=== PATIENT | female | born 1955 | race Caucasian/White ===

== ENCOUNTER 2016-08-16 03:29 | Inpatient (IN) | payer OTHER ==
[~2016-08-16] VITALS: Ht 162.6 cm; Wt 97.2 kg
[~2016-08-16 03:29] MED LIST: CEFD300C2 PO; HYDR-3240 PO; LEVO100T PO; LEVO150T5 PO; LEVO25TA2 PO; LOSA50TA6 PO; MAG355OR14 PO; METR500T PO; ONDA4TAB13 SL; PANT40TA5 PO; TRAM50TA2 PO
[2016-08-16] MEDS ORDERED: SODIUM CHLORIDE FLUSH 10ML SYR IVF ONE (04:00)
[2016-08-16] MEDS ORDERED: SODIUM CHLORIDE 0.9% 1,000ML IVBOLUS ONE (04:00)
[2016-08-16] MEDS ORDERED: ONDANSETRON 2MG/ML, 2ML IVPush ONE (04:00)
[2016-08-16] MEDS ORDERED: ONDANSETRON 2MG/ML, 2ML ONE (04:07)
[2016-08-16] MEDS ORDERED: MORPHINE SULFATE 4 MG/ML, 1ML ONE ×2 (04:07→04:41)
[2016-08-16] MEDS: MORPHINE SULFATE 4 MG/ML, 1ML IVPush PRN ×2 (04:14→05:05)
[2016-08-16 04:18] LABS: HEMOGLOBIN 14.1 g/dL (11.7-16.4)
[2016-08-16 04:30] LABS: ASPARTATE AMINO TRANSFERASE 15 U/L (15-37); BLOOD UREA NITROGEN 8 mg/dL (7-18)
[2016-08-16 04:36] LABS: IS PT STATUS REG ER OR PRE ER? YES
[2016-08-16] MEDS ORDERED: POTASSIUM CHLORIDE 20 MEQ TAB.ER.PRT PO ONE (05:00)
[2016-08-16] MEDS ORDERED: POTASSIUM CHLORIDE 10% 20 MEQ/15 ML UDC ONE (05:20)
[2016-08-16] MEDS ORDERED: PHENAZOPYRIDINE 200 MG TABLET PO SCH (05:30)
[2016-08-16] MEDS ORDERED: POLYETHYLENE GLYCOL 17 GM PACKET PO PRN (05:30)
[2016-08-16] MEDS ORDERED: OXYcodone/APAP 5/325MG TABLET PO PRN (05:30)
[2016-08-16] MEDS ORDERED: CEFTRIAXONE PMX 1GM/50ML 50 ML IV SCH (05:30)
[2016-08-16] MEDS ORDERED: PROMETHAZINE 25 MG/ML, 1ML IM PRN (05:30)
[2016-08-16] MEDS ORDERED: ACETAMINOPHEN 325 MG TABLET PO PRN ×2 (05:30→16:30)
[2016-08-16] MEDS ORDERED: BISACODYL 10 MG SUPP PR PRN (05:30)
[2016-08-16] MEDS ORDERED: DOCUSATE 100 MG CAPSULE PO PRN (05:30)
[2016-08-16] MEDS ORDERED: ZOLPIDEM 5MG TABLET PO PRN (05:30)
[2016-08-16] MEDS ORDERED: ONDANSETRON 2MG/ML, 2ML IVP PRN (05:30)
[2016-08-16] MEDS ORDERED: HYDROmorphone 1 MG/ML, 1ML ONE (05:36)
[2016-08-16] MEDS: HYDROmorphone 2 MG/ML, 1ML IV PRN ×2 (05:40→08:15)
[2016-08-16] MEDS ORDERED: CEFTRIAXONE PMX 1GM/50ML 50 ML ONE (05:42)
[2016-08-16] MEDS ORDERED: OMNIPAQUE 350 MG/ML, 100ML BOTTLE ONE (06:13)
[2016-08-16 06:37] VITALS: BP 193/121
[2016-08-16] MEDS: LABETALOL 5MG/ML, 20ML IV PRN ×2 (06:43→08:15)
[2016-08-16 07:20] VITALS: BP 166/118
[2016-08-16] MEDS ORDERED: HEPARIN 1,000 UNITS/ML, 30ML ONE (08:12)
[2016-08-16] MEDS ORDERED: KETAMINE 10 MG/ML, 20ML ONE (08:13)
[2016-08-16] MEDS ORDERED: FENTANYL PF 250 MCG/5ML ONE (08:14)
[2016-08-16] MEDS ORDERED: MIDAZOLAM 1 MG/ML, 2ML ONE ×2 (08:14→12:57)
[2016-08-16] MEDS ORDERED: LOSARTAN 50MG TABLET PO SCH (09:00)
[2016-08-16] MEDS ORDERED: LEVOTHYROXINE 25 MCG TABLET PO SCH (09:00)
[2016-08-16] MEDS ORDERED: PHENYLEPHRINE 10 MG/ML ONE (09:06)
[2016-08-16] MEDS ORDERED: ROCURONIUM 10 MG/ML ONE (09:06)
[2016-08-16] MEDS ORDERED: SUCCINYLCHOLINE 20 MG/ML, 10ML ONE (09:06)
[2016-08-16] MEDS ORDERED: ALBUMIN HUMAN 5% 500 ML ONE (09:38)
[2016-08-16] MEDS ORDERED: POTASSIUM CHLORIDE 40 MEQ in SODIUM CHLORIDE 0.9% 100 ML IV ONE (11:00)
[2016-08-16] MEDS ORDERED: CALCIUM CHLORIDE 10%, 10ML SYR ONE (12:00)
[2016-08-16] MEDS: NS + 20MEQ KCL 1,000 ML IV SCH ×2 (12:05→15:54)
[2016-08-16] MEDS ORDERED: THROMBIN 20,000 UNIT VIAL TP ONE (12:40)
[2016-08-16] MEDS ORDERED: PROTAMINE SULFATE 10 MG/ML, 5ML ONE (12:40)
[2016-08-16] MEDS ORDERED: ALBUMIN HUMAN 5% 1,000 ML ONE (12:57)
[2016-08-16] MEDS ORDERED: HEPARIN 25,000 UNITS/500ML PMX 500 ML IV PRN ×2 (13:30→22:00)
[2016-08-16] MEDS ORDERED: PROPOFOL 100 ML IV ONE (13:50)
[2016-08-16 14:00] VITALS: BP 136/82
[2016-08-16] MEDS: LEVOTHYROXINE 100 MCG TABLET PO SCH (14:00)
[2016-08-16 14:32] LABS: HEMOGLOBIN 11.1 g/dL (11.7-16.4)
[2016-08-16] MEDS ORDERED: FENTANYL 100 MCG PATCH ONE (14:36)
[2016-08-16] MEDS ORDERED: FENTANYL PF 100 MCG/2ML ONE (14:37)
[2016-08-16] MEDS ORDERED: FENTANYL PF 2,500 MCG in SODIUM CHLORIDE 0.9% 200 ML IV PRN (14:39)
[2016-08-16] MEDS ORDERED: NOREPINEPHRINE 4 MG in SODIUM CHLORIDE 0.9% 246 ML IV PRN (14:39)
[2016-08-16 14:41] LABS: ASPARTATE AMINO TRANSFERASE 15 U/L (15-37); BLOOD UREA NITROGEN 6 mg/dL (7-18)
[2016-08-16] MEDS: PROPOFOL 100 ML IV PRN ×3 (14:45→21:44)
[2016-08-16 14:55] LABS: ABG COLLECTION SITE ARTERIAL LINE
[2016-08-16] MEDS ORDERED: PHARMACY MAY ADJ FOR RENAL FX MC SCH (15:00)
[2016-08-16] MEDS ORDERED: DEXTROSE 50%, 50ML SYRINGE IVPush PRN (15:00)
[2016-08-16] MEDS ORDERED: DEXTROSE 4 GM TAB.CHEW PO PRN (15:00)
[2016-08-16] MEDS ORDERED: GLUCAGON 1 MG IM PRN (15:00)
[2016-08-16] MEDS ORDERED: LIDOCAINE-MPF 1%, 2ML ENDO PRN (15:00)
[2016-08-16] MEDS ORDERED: FENTANYL PF 100 MCG/2ML IVPush ONE (15:00)
[2016-08-16] MEDS: FENTANYL PF 100 MCG/2ML IVPush PRN ×5 (15:02→22:18)
[2016-08-16] MEDS: PIPERACILLIN/TAZO/PMX 3.375GM 50 ML IV SCH ×2 (15:42→20:24)
[2016-08-16] MEDS: FAMOTIDINE 20 MG/2 ML IV SCH (16:05)
[2016-08-16] MEDS ORDERED: ACETAMINOPHEN 650 MG SUPP ONE (16:40)
[2016-08-16] MEDS: METRONIDAZOLE PMX 500MG/100ML 100 ML IV SCH ×2 (16:42→16:53)
[2016-08-16] MEDS: ALBUTEROL/IPRATROPIUM 2.5MG/0.5MG, 3 ML INLINE SCH ×3 (19:00→21:28)
[2016-08-16] MEDS: SODIUM CHLORIDE 0.9% 1,000 ML IV SCH (20:00)
[2016-08-16] MEDS: SODIUM CHLORIDE FLUSH 10ML SYR IVF SCH (20:24)
[2016-08-16 20:27] LABS: HEMOGLOBIN 11.8 g/dL (11.7-16.4)
[2016-08-16 20:39] LABS: BLOOD UREA NITROGEN 9 mg/dL (7-18)
[2016-08-16] MEDS: HEPARIN 5,000 UNITS/ML, 1ML IV PRN (22:03)
[2016-08-16 23:02] LABS: PATH.CAST-FLAG NOT PRESENT; SPERM-FLAG NOT PRESENT; XTAL-FLAG NOT PRESENT; YLC-FLAG NOT PRESENT
[2016-08-16 23:15] LABS: ICTOTEST NEGATIVE
[2016-08-16 23:22] LABS: SRC-FLAG NOT PRESENT
[2016-08-17] MEDS: SODIUM CHLORIDE 0.9% 1,000 ML IV SCH ×4 (01:00→20:19)
[2016-08-17] MEDS: METRONIDAZOLE PMX 500MG/100ML 100 ML IV SCH ×4 (01:10→23:17)
[2016-08-17] MEDS: ALBUTEROL/IPRATROPIUM 2.5MG/0.5MG, 3 ML INLINE SCH ×6 (01:50→21:58)
[2016-08-17 02:00] LABS: HEMOGLOBIN 11.5 g/dL (11.7-16.4)
[2016-08-17 02:13] LABS: BLOOD UREA NITROGEN 10 mg/dL (7-18)
[2016-08-17] MEDS: PIPERACILLIN/TAZO/PMX 3.375GM 50 ML IV SCH ×4 (03:12→21:48)
[2016-08-17] MEDS: FAMOTIDINE 20 MG/2 ML IV SCH ×2 (03:12→15:06)
[2016-08-17 04:37] LABS: ABG COLLECTION SITE LEFT RADIAL; COLLATERAL CIRCULATION TESTING NORMAL
[2016-08-17 04:42] LABS: HEMOGLOBIN 11.7 g/dL (11.7-16.4)
[2016-08-17 04:50] LABS: BLOOD UREA NITROGEN 10 mg/dL (7-18)
[2016-08-17] MEDS: LEVOTHYROXINE 100 MCG TABLET PO SCH (05:13)
[2016-08-17] MEDS: HEPARIN 5,000 UNITS/ML, 1ML IV PRN ×3 (05:14→18:50)
[2016-08-17 05:40] LABS: DIFF TOTAL CELLS COUNTED 100 CELL DIFF
[2016-08-17 05:44] LABS: VERIFY COUNTS? YES
[2016-08-17] MEDS ORDERED: LEVOTHYROXINE 25 MCG TABLET PO SCH (06:00)
[2016-08-17] MEDS ORDERED: MAGNESIUM SULFATE PMX 2GM/50ML 50 ML IV ONE (06:30)
[2016-08-17] MEDS ORDERED: FENTANYL PF 250 MCG/5ML ONE (08:16)
[2016-08-17] MEDS ORDERED: MIDAZOLAM 1 MG/ML, 2ML ONE (08:16)
[2016-08-17] MEDS ORDERED: ROCURONIUM 10 MG/ML ONE (08:26)
[2016-08-17] MEDS ORDERED: PHENYLEPHRINE 10 MG/ML ONE (08:26)
[2016-08-17] MEDS ORDERED: PROPOFOL 10 MG/ML, 50ML ONE (08:26)
[2016-08-17] MEDS ORDERED: LACTATED RINGERS 500 ML IVBOLUS ONE (08:30)
[2016-08-17 08:35] LABS: HEMOGLOBIN 11.6 g/dL (11.7-16.4)
[2016-08-17 09:06] LABS: DIFF TOTAL CELLS COUNTED 100 CELL DIFF
[2016-08-17] MEDS: LEVOTHYROXINE MC SCH ×2 (10:00→18:00)
[2016-08-17] MEDS ORDERED: VANCOMYCIN PER PHARMACY MC PRN (10:00)
[2016-08-17 10:01] LABS: VERIFY COUNTS? YES
[2016-08-17] MEDS: PROPOFOL 100 ML IV PRN ×4 (10:13→23:50)
[2016-08-17 10:18] LABS: ABG COLLECTION SITE ARTERIAL LINE; FIO2 50 %
[2016-08-17] MEDS: SODIUM CHLORIDE FLUSH 10ML SYR IVF SCH ×2 (10:23→23:17)
[2016-08-17 10:31] LABS: ASPARTATE AMINO TRANSFERASE 9 U/L (15-37); BLOOD UREA NITROGEN 9 mg/dL (7-18)
[2016-08-17] MEDS ORDERED: PHARMACOKINETIC MONITORING MC PRN (12:00)
[2016-08-17] MEDS ORDERED: SODIUM CHLORIDE 0.9% 1,000ML IVBOLUS ONE ×4 (12:00→21:00)
[2016-08-17] MEDS ORDERED: PHARMACOKINETIC CONSULTATION MC ONE (12:00)
[2016-08-17] MEDS: VANCOMYCIN 1,900 MG in SODIUM CHLORIDE 0.9% 250 ML IV SCH (12:11)
[2016-08-17] MEDS ORDERED: POTASSIUM CHLORIDE 40 MEQ in SODIUM CHLORIDE 0.9% 100 ML IV ONE (13:00)
[2016-08-17] MEDS ORDERED: POTASSIUM CHLORIDE 30 MEQ in SODIUM CHLORIDE 0.9% 100 ML IV ONE (13:00)
[2016-08-17] MEDS: KSCALE TO 4.0 IV SCH ×2 (13:09→19:00)
[2016-08-17 18:30] LABS: HEMOGLOBIN 9.7 g/dL (11.7-16.4)
[2016-08-17 18:42] LABS: BLOOD UREA NITROGEN 10 mg/dL (7-18)
[2016-08-17 18:51] LABS: DIFF TOTAL CELLS COUNTED 100 CELL DIFF
[2016-08-17 18:53] LABS: VERIFY COUNTS? YES
[2016-08-17] MEDS ORDERED: ALBUMIN HUMAN 5% 500 ML IV ONE (19:30)
[2016-08-17] MEDS ORDERED: POTASSIUM CHLORIDE PMX 100 ML IV ONE (20:30)
[2016-08-17] MEDS: HYDROmorphone 2 MG/ML, 1ML IV PRN (20:49)
[2016-08-17] MEDS ORDERED: POTASSIUM PHOSPHATE 44 MEQ in SODIUM CHLORIDE 0.9% 500 ML IV ONE (23:30)
[2016-08-18] MEDS: KSCALE TO 4.0 IV SCH ×4 (01:00→22:00)
[2016-08-18] MEDS ORDERED: POTASSIUM CHLORIDE PMX 100 ML IV ONE ×5 (01:30→23:30)
[2016-08-18] MEDS: ALBUTEROL/IPRATROPIUM 2.5MG/0.5MG, 3 ML INLINE SCH ×6 (01:34→22:00)
[2016-08-18] MEDS: LEVOTHYROXINE MC SCH (02:00)
[2016-08-18] MEDS: FENTANYL PF 2,500 MCG in SODIUM CHLORIDE 0.9% 200 ML IV PRN ×2 (02:08→18:27)
[2016-08-18] MEDS: PIPERACILLIN/TAZO/PMX 3.375GM 50 ML IV SCH ×4 (02:59→21:31)
[2016-08-18] MEDS: FAMOTIDINE 20 MG/2 ML IV SCH (02:59)
[2016-08-18] MEDS: HYDROmorphone 2 MG/ML, 1ML IV PRN (04:15)
[2016-08-18 04:29] LABS: HEMOGLOBIN 8.5 g/dL (11.7-16.4)
[2016-08-18 04:32] LABS: ABG COLLECTION SITE NOT DOCUMENTED
[2016-08-18 04:49] VITALS: BP 132/82
[2016-08-18 04:52] LABS: ASPARTATE AMINO TRANSFERASE 11 U/L (15-37); BLOOD UREA NITROGEN 13 mg/dL (7-18)
[2016-08-18] MEDS: PROPOFOL 100 ML IV PRN ×3 (05:36→21:51)
[2016-08-18] MEDS: LEVOTHYROXINE 100 MCG INJ IVPush SCH (05:39)
[2016-08-18 05:44] LABS: DIFF TOTAL CELLS COUNTED 100 CELL DIFF
[2016-08-18 05:46] LABS: ANISOCYTOSIS 1+; VERIFY COUNTS? YES
[2016-08-18] MEDS: METRONIDAZOLE PMX 500MG/100ML 100 ML IV SCH (07:30)
[2016-08-18] MEDS ORDERED: HEPARIN 25,000 UNITS/500ML PMX 500 ML ONE (08:14)
[2016-08-18] MEDS: HEPARIN 5,000 UNITS/ML, 1ML IV PRN ×2 (08:28→23:25)
[2016-08-18] MEDS: HEPARIN 25,000 UNITS/500ML PMX 500 ML IV PRN (08:39)
[2016-08-18] MEDS: SODIUM CHLORIDE FLUSH 10ML SYR IVF SCH ×2 (08:42→21:38)
[2016-08-18] MEDS ORDERED: ALBUMIN HUMAN 5% 500 ML IV SCH (09:00)
[2016-08-18 09:21] VITALS: BP 115/56
[2016-08-18] MEDS ORDERED: TPN PER PHARMACY MC PRN (10:00)
[2016-08-18] MEDS ORDERED: MAGNESIUM SULFATE PMX 2GM/50ML 50 ML IV ONE (10:00)
[2016-08-18] MEDS: MICAFUNGIN 100 MG in SODIUM CHLORIDE 0.9% 100 ML IV SCH (10:18)
[2016-08-18] MEDS: ALBUMIN HUMAN 25% 100 ML IV SCH ×3 (11:25→21:31)
[2016-08-18] MEDS: SODIUM CHLORIDE 0.9% 1,000 ML IV SCH ×2 (11:25→23:35)
[2016-08-18] MEDS: VANCOMYCIN 1,900 MG in SODIUM CHLORIDE 0.9% 250 ML IV SCH (11:28)
[2016-08-18] MEDS ORDERED: FUROSEMIDE 20 MG/2 ML IV ONE (14:30)
[2016-08-18] MEDS ORDERED: FENTANYL PF 2,500 MCG in SODIUM CHLORIDE 0.9% 200 ML IV PRN (14:39)
[2016-08-18] MEDS ORDERED: DEXTROSE 70% IV SCH (17:00)
[2016-08-18] MEDS ORDERED: [UNRECOGNIZED DRUG - OTHER] IV SCH (17:00)
[2016-08-18] MEDS ORDERED: FAT EMULSIONS IV SCH (17:00)
[2016-08-18] MEDS ORDERED: DEXTROSE 50%, 50ML SYRINGE IVPush PRN (17:00)
[2016-08-18] MEDS ORDERED: DEXTROSE 10% 500 ML IV PRN (17:00)
[2016-08-18] MEDS ORDERED: AMINO ACID 10% IV SCH (17:00)
[2016-08-18] MEDS: INSULIN REGULAR MEDIUM DOSE QDAY SQ-INSULIN SCH (21:38)
[2016-08-18] MEDS: INSULIN REGULAR MEDIUM DOSE Q6H X 48HRS SQ-INSULIN SCH (21:38)
[2016-08-19] VITALS (7 sets, daily range): BP systolic 124–146; BP diastolic 65–79
[2016-08-19] MEDS: HEPARIN 25,000 UNITS/500ML PMX 500 ML IV PRN ×2 (00:32→22:11)
[2016-08-19] MEDS: PIPERACILLIN/TAZO/PMX 3.375GM 50 ML IV SCH ×4 (02:45→23:01)
[2016-08-19] MEDS: ALBUTEROL/IPRATROPIUM 2.5MG/0.5MG, 3 ML INLINE SCH ×6 (03:00→23:18)
[2016-08-19] MEDS: INSULIN REGULAR MEDIUM DOSE Q6H X 48HRS SQ-INSULIN SCH ×4 (03:24→20:57)
[2016-08-19] MEDS: PROPOFOL 100 ML IV PRN ×3 (03:50→20:28)
[2016-08-19 04:09] LABS: ABG COLLECTION SITE ARTERIAL LINE
[2016-08-19 04:20] LABS: HEMOGLOBIN 7.3 g/dL (11.7-16.4)
[2016-08-19 04:23] LABS: BLOOD UREA NITROGEN 16 mg/dL (7-18)
[2016-08-19 04:31] LABS: ASPARTATE AMINO TRANSFERASE 9 U/L (15-37)
[2016-08-19 04:45] LABS: DIFF TOTAL CELLS COUNTED 100 CELL DIFF
[2016-08-19 04:48] LABS: VERIFY COUNTS? YES
[2016-08-19] MEDS: KSCALE TO 4.0 IV SCH ×4 (04:48→23:01)
[2016-08-19] MEDS ORDERED: POTASSIUM CHLORIDE PMX 100 ML IV ONE ×4 (05:00→23:00)
[2016-08-19] MEDS: LEVOTHYROXINE 100 MCG INJ IVPush SCH (06:29)
[2016-08-19] MEDS: ALBUMIN HUMAN 25% 100 ML IV SCH ×3 (09:59→21:00)
[2016-08-19] MEDS: SODIUM CHLORIDE 0.9% 1,000 ML IV SCH (10:00)
[2016-08-19] MEDS: FENTANYL PF 2,500 MCG in SODIUM CHLORIDE 0.9% 200 ML IV PRN (10:00)
[2016-08-19] MEDS ORDERED: PROPOFOL 10 MG/ML, 20ML ONE (10:28)
[2016-08-19] MEDS: SODIUM CHLORIDE FLUSH 10ML SYR IVF SCH ×2 (11:06→21:00)
[2016-08-19] MEDS: MICAFUNGIN 100 MG in SODIUM CHLORIDE 0.9% 100 ML IV SCH (11:44)
[2016-08-19] MEDS: HEPARIN 5,000 UNITS/ML, 1ML IV PRN (12:17)
[2016-08-19] MEDS ORDERED: PHENYLEPHRINE 10 MG/ML ONE (15:20)
[2016-08-19] MEDS ORDERED: ROCURONIUM 10 MG/ML ONE (15:20)
[2016-08-19] MEDS ORDERED: ONDANSETRON 2MG/ML, 2ML ONE (15:20)
[2016-08-19] MEDS ORDERED: [UNRECOGNIZED DRUG - OTHER] IV SCH (17:00)
[2016-08-19] MEDS ORDERED: AMINO ACID 10% IV SCH (17:00)
[2016-08-19] MEDS ORDERED: DEXTROSE 70% IV SCH (17:00)
[2016-08-19] MEDS ORDERED: FAT EMULSIONS IV SCH (17:00)
[2016-08-19] MEDS ORDERED: MIDAZOLAM 1 MG/ML, 2ML ONE (17:09)
[2016-08-19] MEDS ORDERED: FENTANYL PF 100 MCG/2ML ONE (17:09)
[2016-08-19] MEDS ORDERED: HYDROmorphone 1 MG/ML, 1ML ONE (17:09)
[2016-08-19] MEDS ORDERED: KETAMINE 10 MG/ML, 20ML ONE (17:09)
[2016-08-19] MEDS: INSULIN REGULAR MEDIUM DOSE QDAY SQ-INSULIN SCH (20:58)
[2016-08-20] MEDS: INSULIN REGULAR MEDIUM DOSE Q6H X 48HRS SQ-INSULIN SCH ×3 (03:09→15:58)
[2016-08-20] MEDS: PROPOFOL 100 ML IV PRN (03:09)
[2016-08-20 04:00] VITALS: BP 131/83
[2016-08-20 04:26] LABS: HEMOGLOBIN 9.6 g/dL (11.7-16.4)
[2016-08-20 04:34] LABS: DIFF TOTAL CELLS COUNTED 100 CELL DIFF
[2016-08-20 04:40] LABS: ANISOCYTOSIS 1+; POLYCHROMASIA 1+; VERIFY COUNTS? YES
[2016-08-20 04:41] LABS: BLOOD UREA NITROGEN 18 mg/dL (7-18); OVALOCYTES 1+
[2016-08-20 04:43] LABS: ABG COLLECTION SITE LEFT RADIAL; COLLATERAL CIRCULATION TESTING NORMAL
[2016-08-20] MEDS: HEPARIN 5,000 UNITS/ML, 1ML IV PRN (04:46)
[2016-08-20] MEDS: PIPERACILLIN/TAZO/PMX 3.375GM 50 ML IV SCH ×4 (04:50→23:23)
[2016-08-20] MEDS: KSCALE TO 4.0 IV SCH ×4 (05:05→22:00)
[2016-08-20] MEDS: FENTANYL PF 2,500 MCG in SODIUM CHLORIDE 0.9% 200 ML IV PRN ×2 (05:23→23:30)
[2016-08-20] MEDS: LEVOTHYROXINE 100 MCG INJ IVPush SCH (05:31)
[2016-08-20] MEDS: ALBUTEROL/IPRATROPIUM 2.5MG/0.5MG, 3 ML INLINE SCH ×3 (06:45→15:00)
[2016-08-20] MEDS: ALBUMIN HUMAN 25% 100 ML IV SCH ×3 (08:29→21:04)
[2016-08-20] MEDS: SODIUM CHLORIDE FLUSH 10ML SYR IVF SCH ×2 (09:57→21:04)
[2016-08-20] MEDS: MICAFUNGIN 100 MG in SODIUM CHLORIDE 0.9% 100 ML IV SCH (09:57)
[2016-08-20] MEDS: HEPARIN 25,000 UNITS/500ML PMX 500 ML IV PRN ×2 (11:34→23:31)
[2016-08-20] MEDS: ALBUTEROL SULFATE 2.5 MG/3 ML NPPB SCH ×2 (15:00→20:15)
[2016-08-20] MEDS: SODIUM CHLORIDE 0.9% 1,000 ML IV SCH ×2 (16:01→23:00)
[2016-08-20] MEDS: HYDROmorphone 2 MG/ML, 1ML IV PRN ×3 (16:39→23:22)
[2016-08-20] MEDS ORDERED: [UNRECOGNIZED DRUG - OTHER] IV SCH (17:00)
[2016-08-20] MEDS ORDERED: FAT EMULSIONS IV SCH (17:00)
[2016-08-20] MEDS ORDERED: AMINO ACID 10% IV SCH (17:00)
[2016-08-20] MEDS ORDERED: DEXTROSE 70% IV SCH (17:00)
[2016-08-20] MEDS ORDERED: POTASSIUM CHLORIDE PMX 100 ML IV ONE ×2 (17:00→23:45)
[2016-08-21] VITALS (15 sets, daily range): BP systolic 92–160; BP diastolic 45–92
[2016-08-21] MEDS: FENTANYL PF 100 MCG/2ML IVPush PRN (02:54)
[2016-08-21] MEDS: HYDROmorphone 2 MG/ML, 1ML IV PRN ×6 (03:08→23:50)
[2016-08-21] MEDS: KSCALE TO 4.0 IV SCH ×4 (04:00→22:00)
[2016-08-21 04:33] LABS: ABG COLLECTION SITE LEFT RADIAL; COLLATERAL CIRCULATION TESTING NORMAL
[2016-08-21] MEDS: INSULIN REGULAR MEDIUM DOSE QDAY SQ-INSULIN SCH ×2 (05:12→20:18)
[2016-08-21] MEDS: PIPERACILLIN/TAZO/PMX 3.375GM 50 ML IV SCH ×4 (05:13→22:19)
[2016-08-21] MEDS: LEVOTHYROXINE 100 MCG INJ IVPush SCH (05:18)
[2016-08-21 05:23] LABS: BLOOD UREA NITROGEN 22 mg/dL (7-18)
[2016-08-21 05:29] LABS: HEMOGLOBIN 7.4 g/dL (11.7-16.4)
[2016-08-21 05:59] LABS: DIFF TOTAL CELLS COUNTED 100 CELL DIFF
[2016-08-21 06:00] LABS: VERIFY COUNTS? YES
[2016-08-21 06:01] LABS: ANISOCYTOSIS 1+; POLYCHROMASIA 1+
[2016-08-21 06:03] LABS: LARGE PLATELETS 1+
[2016-08-21] MEDS ORDERED: POTASSIUM CHLORIDE PMX 100 ML IV ONE ×2 (06:30→23:45)
[2016-08-21] MEDS: ALBUTEROL SULFATE 2.5 MG/3 ML NPPB SCH (07:00)
[2016-08-21] MEDS ORDERED: DO NOT GIVE MC PRN (08:30)
[2016-08-21] MEDS ORDERED: SODIUM CHLORIDE 0.9% 1,000 ML IV SCH (09:14)
[2016-08-21] MEDS: ALBUMIN HUMAN 25% 100 ML IV SCH ×3 (09:15→21:19)
[2016-08-21] MEDS: SODIUM CHLORIDE FLUSH 10ML SYR IVF SCH ×2 (09:20→20:13)
[2016-08-21] MEDS: MICAFUNGIN 100 MG in SODIUM CHLORIDE 0.9% 100 ML IV SCH (11:29)
[2016-08-21] MEDS ORDERED: SODIUM CHLORIDE 0.9% IV ONE (13:30)
[2016-08-21] MEDS ORDERED: PROTAMINE SULFATE IV ONE (13:30)
[2016-08-21] MEDS ORDERED: PROTAMINE SULFATE 10 MG/ML, 5ML IVPush ONE (13:30)
[2016-08-21] MEDS: [UNRECOGNIZED DRUG - OTHER] IV SCH ×2 (16:36→17:36)
[2016-08-21] MEDS: AMINO ACID 10% IV SCH ×2 (16:36→17:36)
[2016-08-21] MEDS: DEXTROSE 70% IV SCH ×2 (16:36→17:36)
[2016-08-21] MEDS: FAT EMULSIONS IV SCH ×2 (16:36→17:36)
[2016-08-21 17:04] LABS: HEMOGLOBIN 7.2 g/dL (11.7-16.4)
[2016-08-21] MEDS: FENTANYL PF 2,500 MCG in SODIUM CHLORIDE 0.9% 200 ML IV PRN (17:44)
[2016-08-21] MEDS: FILTER, DISP 1.2 MICRON FOR TPN/PVN IV PRN (17:45)
[2016-08-21] MEDS ORDERED: POTASSIUM CHLORIDE PMX 100 ML IVPB ONE (20:00)
[2016-08-21 23:07] LABS: HEMOGLOBIN 8.6 g/dL (11.7-16.4)
[2016-08-22] MEDS: HYDROmorphone 2 MG/ML, 1ML IV PRN ×5 (03:56→19:27)
[2016-08-22 03:57] VITALS: BP 146/83
[2016-08-22 04:50] LABS: ABG COLLECTION SITE LEFT BRACHIAL
[2016-08-22] MEDS: KSCALE TO 4.0 IV SCH ×4 (05:30→22:00)
[2016-08-22] MEDS: PIPERACILLIN/TAZO/PMX 3.375GM 50 ML IV SCH ×4 (05:57→23:02)
[2016-08-22] MEDS: LEVOTHYROXINE 100 MCG INJ IVPush SCH (06:00)
[2016-08-22 06:20] LABS: HEMOGLOBIN 8.4 g/dL (11.7-16.4)
[2016-08-22 06:36] LABS: BLOOD UREA NITROGEN 37 mg/dL (7-18)
[2016-08-22 06:37] LABS: DIFF TOTAL CELLS COUNTED 100 CELL DIFF
[2016-08-22 06:40] LABS: VERIFY COUNTS? YES
[2016-08-22] MEDS: FENTANYL PF 2,500 MCG in SODIUM CHLORIDE 0.9% 200 ML IV PRN (06:40)
[2016-08-22 06:47] LABS: ANISOCYTOSIS 1+
[2016-08-22 06:48] LABS: POLYCHROMASIA 1+
[2016-08-22] MEDS ORDERED: POTASSIUM CHLORIDE PMX 100 ML IV ONE ×4 (07:00→23:00)
[2016-08-22 07:40] LABS: ABG COLLECTION SITE RIGHT RADIAL; COLLATERAL CIRCULATION TESTING NORMAL
[2016-08-22 08:27] LABS: OCCBLD OBC PASS
[2016-08-22] MEDS: SODIUM CHLORIDE FLUSH 10ML SYR IVF SCH ×2 (09:00→20:27)
[2016-08-22] MEDS ORDERED: INSULIN REGULAR MEDIUM DOSE QDAY SQ-INSULIN SCH (09:00)
[2016-08-22] MEDS: ALBUMIN HUMAN 25% 100 ML IV SCH ×3 (09:30→20:27)
[2016-08-22] MEDS: MICAFUNGIN 100 MG in SODIUM CHLORIDE 0.9% 100 ML IV SCH (10:21)
[2016-08-22 10:40] LABS: HEMOGLOBIN 8.6 g/dL (11.7-16.4)
[2016-08-22] MEDS ORDERED: DEXTROSE 70% IV SCH (17:00)
[2016-08-22] MEDS ORDERED: [UNRECOGNIZED DRUG - OTHER] IV SCH (17:00)
[2016-08-22] MEDS ORDERED: FAT EMULSIONS IV SCH (17:00)
[2016-08-22] MEDS ORDERED: AMINO ACID 10% IV SCH (17:00)
[2016-08-23] MEDS: HYDROmorphone 2 MG/ML, 1ML IV PRN ×2 (00:08→07:46)
[2016-08-23] MEDS: LORazepam 2 MG/ML, 1ML IVPush PRN (00:09)
[2016-08-23] MEDS: FENTANYL PF 2,500 MCG in SODIUM CHLORIDE 0.9% 200 ML IV PRN ×2 (00:22→16:50)
[2016-08-23] MEDS: KSCALE TO 4.0 IV SCH ×4 (04:00→22:00)
[2016-08-23 04:33] LABS: ABG COLLECTION SITE RIGHT RADIAL; COLLATERAL CIRCULATION TESTING NORMAL
[2016-08-23] MEDS: PIPERACILLIN/TAZO/PMX 3.375GM 50 ML IV SCH ×4 (04:41→23:13)
[2016-08-23 04:47] VITALS: BP 145/85
[2016-08-23 05:05] LABS: BLOOD UREA NITROGEN 50 mg/dL (7-18)
[2016-08-23 05:10] LABS: HEMOGLOBIN 7.6 g/dL (11.7-16.4)
[2016-08-23 05:37] LABS: DIFF TOTAL CELLS COUNTED 100 CELL DIFF
[2016-08-23 05:39] LABS: ANISOCYTOSIS 1+; POLYCHROMASIA 1+; VERIFY COUNTS? YES
[2016-08-23 05:41] LABS: OVALOCYTES 1+; SPHEROCYTES 1+
[2016-08-23] MEDS: LEVOTHYROXINE 100 MCG INJ IVPush SCH (05:51)
[2016-08-23] MEDS ORDERED: POTASSIUM CHLORIDE PMX 100 ML IV ONE ×4 (06:00→23:30)
[2016-08-23] MEDS ORDERED: HYDROmorphone 1 MG/ML, 1ML ONE (07:42)
[2016-08-23] MEDS: INSULIN REGULAR MEDIUM DOSE QDAY SQ-INSULIN SCH (07:52)
[2016-08-23 10:30] LABS: HEMOGLOBIN 7.5 g/dL (11.7-16.4)
[2016-08-23] MEDS: ALBUMIN HUMAN 25% 100 ML IV SCH ×3 (11:11→21:20)
[2016-08-23] MEDS: MICAFUNGIN 100 MG in SODIUM CHLORIDE 0.9% 100 ML IV SCH (11:11)
[2016-08-23] MEDS: HYDROmorphone 1 MG/ML, 1ML IV PRN (11:12)
[2016-08-23] MEDS: SODIUM CHLORIDE FLUSH 10ML SYR IVF SCH ×2 (11:16→21:20)
[2016-08-23] MEDS ORDERED: DEXTROSE 70% IV SCH (17:00)
[2016-08-23] MEDS ORDERED: FAT EMULSIONS IV SCH (17:00)
[2016-08-23] MEDS ORDERED: [UNRECOGNIZED DRUG - OTHER] IV SCH (17:00)
[2016-08-23] MEDS ORDERED: AMINO ACID 10% IV SCH (17:00)
[2016-08-23] MEDS: ALBUTEROL SULFATE 2.5 MG/3 ML NPPB PRN (20:22)
[2016-08-23] MEDS ORDERED: FUROSEMIDE 40 MG/4 ML IV ONE (20:30)
[2016-08-24] MEDS: ALBUTEROL SULFATE 2.5 MG/3 ML NPPB PRN ×2 (00:11→02:49)
[2016-08-24] MEDS: LABETALOL 5MG/ML, 20ML IV PRN ×2 (02:01→05:58)
[2016-08-24 02:42] LABS: ABG COLLECTION SITE RIGHT RADIAL; COLLATERAL CIRCULATION TESTING NORMAL
[2016-08-24 02:44] LABS: HEMOGLOBIN 8.5 g/dL (11.7-16.4)
[2016-08-24 02:53] LABS: BLOOD UREA NITROGEN 55 mg/dL (7-18)
[2016-08-24 03:03] LABS: DIFF TOTAL CELLS COUNTED 100 CELL DIFF
[2016-08-24 03:05] LABS: VERIFY COUNTS? YES
[2016-08-24 03:06] LABS: ANISOCYTOSIS 1+; LARGE PLATELETS 1+; OVALOCYTES 1+; SPHEROCYTES 1+
[2016-08-24] MEDS ORDERED: FUROSEMIDE 40 MG/4 ML IV ONE (03:30)
[2016-08-24 04:00] VITALS: BP 163/109
[2016-08-24] MEDS: KSCALE TO 4.0 IV SCH (04:00)
[2016-08-24] MEDS: PIPERACILLIN/TAZO/PMX 3.375GM 50 ML IV SCH ×4 (04:31→23:09)
[2016-08-24 04:45] LABS: ABG COLLECTION SITE RIGHT RADIAL; COLLATERAL CIRCULATION TESTING NORMAL
[2016-08-24] MEDS: LEVOTHYROXINE 100 MCG INJ IVPush SCH (05:53)
[2016-08-24 08:35] LABS: ABG COLLECTION SITE LEFT RADIAL; COLLATERAL CIRCULATION TESTING NORMAL; FIO2 100 %
[2016-08-24] MEDS: ALBUMIN HUMAN 25% 100 ML IV SCH ×3 (08:39→21:46)
[2016-08-24] MEDS: INSULIN REGULAR MEDIUM DOSE QDAY SQ-INSULIN SCH ×4 (08:40→21:00)
[2016-08-24] MEDS: SODIUM CHLORIDE FLUSH 10ML SYR IVF SCH ×2 (08:40→21:16)
[2016-08-24] MEDS: LORazepam 2 MG/ML, 1ML IVPush PRN (09:03)
[2016-08-24] MEDS: PROPOFOL 100 ML IV PRN ×5 (09:58→23:51)
[2016-08-24] MEDS: MICAFUNGIN 100 MG in SODIUM CHLORIDE 0.9% 100 ML IV SCH (10:05)
[2016-08-24] MEDS: ALBUTEROL SULFATE 2.5 MG/3 ML INLINE SCH ×4 (10:30→22:56)
[2016-08-24] MEDS: FENTANYL PF 2,500 MCG in SODIUM CHLORIDE 0.9% 200 ML IV PRN (14:25)
[2016-08-24] MEDS ORDERED: ETOMIDATE 40 MG/20 ML ONE (16:00)
[2016-08-24] MEDS ORDERED: FAT EMULSIONS IV SCH (17:00)
[2016-08-24] MEDS ORDERED: MIDAZOLAM 1 MG/ML, 5ML IVPush ONE (17:00)
[2016-08-24] MEDS ORDERED: AMINO ACID 10% IV SCH (17:00)
[2016-08-24] MEDS ORDERED: DEXTROSE 70% IV SCH (17:00)
[2016-08-24] MEDS ORDERED: ETOMIDATE 20 MG/10 ML IVPush ONE (17:00)
[2016-08-24] MEDS ORDERED: FUROSEMIDE 40 MG/4 ML IV SCH (17:00)
[2016-08-24] MEDS ORDERED: [UNRECOGNIZED DRUG - OTHER] IV SCH (17:00)
[2016-08-25] VITALS (9 sets, daily range): BP systolic 120–142; BP diastolic 82–98
[2016-08-25] MEDS: INSULIN REGULAR MEDIUM DOSE QDAY SQ-INSULIN SCH ×2 (03:00→09:29)
[2016-08-25] MEDS: ALBUTEROL SULFATE 2.5 MG/3 ML INLINE SCH ×6 (03:05→21:30)
[2016-08-25] MEDS: PROPOFOL 100 ML IV PRN ×5 (03:19→21:46)
[2016-08-25 04:36] LABS: ABG COLLECTION SITE RIGHT RADIAL; COLLATERAL CIRCULATION TESTING NORMAL
[2016-08-25 05:08] LABS: HEMOGLOBIN 7.2 g/dL (11.7-16.4)
[2016-08-25] MEDS: PIPERACILLIN/TAZO/PMX 3.375GM 50 ML IV SCH (05:11)
[2016-08-25 05:22] LABS: BLOOD UREA NITROGEN 65 mg/dL (7-18)
[2016-08-25] MEDS: LEVOTHYROXINE 100 MCG INJ IVPush SCH (06:38)
[2016-08-25] MEDS: FENTANYL PF 2,500 MCG in SODIUM CHLORIDE 0.9% 200 ML IV PRN (08:10)
[2016-08-25] MEDS: SODIUM CHLORIDE FLUSH 10ML SYR IVF SCH ×2 (08:56→21:28)
[2016-08-25] MEDS: ALBUMIN HUMAN 25% 100 ML IV SCH ×3 (08:56→21:28)
[2016-08-25] MEDS ORDERED: PHYTONADIONE 10 MG/ML, 1ML SQ ONE (09:30)
[2016-08-25] MEDS: ERTAPENEM 0.5 GM in SODIUM CHLORIDE 0.9% 50 ML IV SCH (10:47)
[2016-08-25] MEDS ORDERED: FUROSEMIDE 40 MG/4 ML IV ONE (11:30)
[2016-08-25] MEDS ORDERED: FAT EMULSIONS IV SCH (17:00)
[2016-08-25] MEDS ORDERED: DEXTROSE 70% IV SCH (17:00)
[2016-08-25] MEDS ORDERED: AMINO ACID 10% IV SCH (17:00)
[2016-08-25] MEDS ORDERED: [UNRECOGNIZED DRUG - OTHER] IV SCH (17:00)
[2016-08-25 19:53] LABS: HEMOGLOBIN 9.2 g/dL (11.7-16.4)
[2016-08-26] MEDS: PROPOFOL 100 ML IV PRN ×2 (01:56→06:25)
[2016-08-26 02:04] LABS: HEMOGLOBIN 9.7 g/dL (11.7-16.4)
[2016-08-26 02:16] LABS: ASPARTATE AMINO TRANSFERASE 121 U/L (15-37); BLOOD UREA NITROGEN 66 mg/dL (7-18)
[2016-08-26 02:28] LABS: DIFF TOTAL CELLS COUNTED 100 CELL DIFF
[2016-08-26] MEDS: ALBUTEROL SULFATE 2.5 MG/3 ML INLINE SCH ×6 (02:33→21:43)
[2016-08-26 02:36] LABS: VERIFY COUNTS? YES
[2016-08-26 02:37] LABS: ANISOCYTOSIS 1+; OVALOCYTES 1+; SPHEROCYTES 1+
[2016-08-26 04:11] VITALS: BP 135/94
[2016-08-26 04:35] LABS: ABG COLLECTION SITE RIGHT RADIAL; COLLATERAL CIRCULATION TESTING NORMAL
[2016-08-26] MEDS: FENTANYL PF 2,500 MCG in SODIUM CHLORIDE 0.9% 200 ML IV PRN (05:39)
[2016-08-26] MEDS: LEVOTHYROXINE 100 MCG INJ IVPush SCH (06:26)
[2016-08-26] MEDS: ALBUMIN HUMAN 25% 100 ML IV SCH ×3 (08:54→21:36)
[2016-08-26] MEDS: SODIUM CHLORIDE FLUSH 10ML SYR IVF SCH ×2 (08:57→21:36)
[2016-08-26] MEDS: INSULIN REGULAR MEDIUM DOSE QDAY SQ-INSULIN SCH (08:59)
[2016-08-26] MEDS ORDERED: FUROSEMIDE 100 MG/10 ML IV ONE (10:00)
[2016-08-26] MEDS: ERTAPENEM 0.5 GM in SODIUM CHLORIDE 0.9% 50 ML IV SCH (10:56)
[2016-08-26 13:49] LABS: HEMOGLOBIN 10.8 g/dL (11.7-16.4)
[2016-08-26] MEDS: LABETALOL 5MG/ML, 20ML IV PRN ×2 (13:54→19:27)
[2016-08-26 14:11] LABS: ABG COLLECTION SITE RIGHT RADIAL; COLLATERAL CIRCULATION TESTING NORMAL
[2016-08-26] MEDS ORDERED: STERILE WATER IV SCH (17:00)
[2016-08-26] MEDS ORDERED: [UNRECOGNIZED DRUG - OTHER] IV SCH (17:00)
[2016-08-26] MEDS ORDERED: DEXTROSE 70% IV SCH (17:00)
[2016-08-26] MEDS ORDERED: AMINO ACID 10% IV SCH (17:00)
[2016-08-27] MEDS: ALBUTEROL SULFATE 2.5 MG/3 ML INLINE SCH ×6 (02:19→21:48)
[2016-08-27 03:55] VITALS: BP 150/98
[2016-08-27 05:53] LABS: HEMOGLOBIN 10.2 g/dL (11.7-16.4)
[2016-08-27 06:13] LABS: BLOOD UREA NITROGEN 74 mg/dL (7-18); DIFF TOTAL CELLS COUNTED 100 CELL DIFF
[2016-08-27 06:14] LABS: ANISOCYTOSIS 1+; POLYCHROMASIA 1+; VERIFY COUNTS? YES
[2016-08-27] MEDS: LEVOTHYROXINE 100 MCG INJ IVPush SCH (06:17)
[2016-08-27 06:29] LABS: ABG COLLECTION SITE ARTERIAL LINE
[2016-08-27] MEDS: FENTANYL PF 2,500 MCG in SODIUM CHLORIDE 0.9% 200 ML IV PRN (08:15)
[2016-08-27] MEDS: INSULIN REGULAR MEDIUM DOSE QDAY SQ-INSULIN SCH (08:44)
[2016-08-27] MEDS: ALBUMIN HUMAN 25% 100 ML IV SCH ×3 (08:44→21:10)
[2016-08-27] MEDS: SODIUM CHLORIDE FLUSH 10ML SYR IVF SCH ×2 (08:45→21:09)
[2016-08-27] MEDS: LABETALOL 5MG/ML, 20ML IV PRN ×2 (10:25→15:07)
[2016-08-27] MEDS: ERTAPENEM 0.5 GM in SODIUM CHLORIDE 0.9% 50 ML IV SCH (10:27)
[2016-08-27] MEDS ORDERED: DEXTROSE 70% IV SCH (17:00)
[2016-08-27] MEDS ORDERED: AMINO ACID 10% IV SCH (17:00)
[2016-08-27] MEDS ORDERED: FAT EMULSIONS IV SCH (17:00)
[2016-08-27] MEDS ORDERED: [UNRECOGNIZED DRUG - OTHER] IV SCH (17:00)
[2016-08-27] MEDS: FILTER, DISP 1.2 MICRON FOR TPN/PVN IV PRN (18:00)
[2016-08-28] MEDS: ALBUTEROL SULFATE 2.5 MG/3 ML INLINE SCH ×6 (01:46→22:32)
[2016-08-28] MEDS ORDERED: CATHFLO-ALTEPLASE 2 MG/2 ML CATHFLUSH ONE (03:30)
[2016-08-28 04:10] LABS: ABG COLLECTION SITE RIGHT RADIAL; COLLATERAL CIRCULATION TESTING NORMAL
[2016-08-28 04:15] VITALS: BP 154/108
[2016-08-28 05:26] LABS: HEMOGLOBIN 9.9 g/dL (11.7-16.4)
[2016-08-28 05:33] LABS: BLOOD UREA NITROGEN 90 mg/dL (7-18)
[2016-08-28] MEDS: hydrALAzine 20 MG/ML, 1ML IV PRN (05:55)
[2016-08-28 06:12] LABS: DIFF TOTAL CELLS COUNTED 100 CELL DIFF
[2016-08-28 06:16] LABS: ANISOCYTOSIS 1+; POLYCHROMASIA 1+
[2016-08-28 06:18] LABS: LARGE PLATELETS 1+
[2016-08-28 06:35] LABS: VERIFY COUNTS? YES
[2016-08-28] MEDS: ALBUMIN HUMAN 25% 100 ML IV SCH ×3 (08:59→19:52)
[2016-08-28] MEDS: LEVOTHYROXINE 100 MCG INJ IVPush SCH (08:59)
[2016-08-28] MEDS: LABETALOL 5MG/ML, 20ML IV PRN (09:00)
[2016-08-28] MEDS: SODIUM CHLORIDE FLUSH 10ML SYR IVF SCH ×2 (09:01→19:52)
[2016-08-28] MEDS: FENTANYL PF 2,500 MCG in SODIUM CHLORIDE 0.9% 200 ML IV PRN (10:00)
[2016-08-28] MEDS: ERTAPENEM 0.5 GM in SODIUM CHLORIDE 0.9% 50 ML IV SCH (10:46)
[2016-08-28] MEDS: MICAFUNGIN 100 MG in SODIUM CHLORIDE 0.9% 100 ML IV SCH (11:55)
[2016-08-28] MEDS: FILTER, DISP 1.2 MICRON FOR TPN/PVN IV PRN (16:52)
[2016-08-28] MEDS: LORazepam 2 MG/ML, 1ML IVPush PRN (16:52)
[2016-08-28] MEDS ORDERED: DEXTROSE 70% IV SCH (17:00)
[2016-08-28] MEDS ORDERED: FAT EMULSIONS IV SCH (17:00)
[2016-08-28] MEDS ORDERED: [UNRECOGNIZED DRUG - OTHER] IV SCH (17:00)
[2016-08-28] MEDS ORDERED: AMINO ACID 10% IV SCH (17:00)
[2016-08-29] MEDS: ALBUTEROL SULFATE 2.5 MG/3 ML INLINE SCH ×6 (02:45→21:58)
[2016-08-29 03:30] VITALS: BP 157/102
[2016-08-29 04:39] LABS: ABG COLLECTION SITE LEFT RADIAL; COLLATERAL CIRCULATION TESTING NORMAL
[2016-08-29 04:52] LABS: HEMOGLOBIN 9.9 g/dL (11.7-16.4)
[2016-08-29 05:05] LABS: BLOOD UREA NITROGEN 98 mg/dL (7-18)
[2016-08-29 05:19] LABS: DIFF TOTAL CELLS COUNTED 100 CELL DIFF
[2016-08-29 05:22] LABS: ANISOCYTOSIS 1+; LARGE PLATELETS 1+; POLYCHROMASIA 1+
[2016-08-29 05:23] LABS: VERIFY COUNTS? YES
[2016-08-29] MEDS: LEVOTHYROXINE 100 MCG INJ IVPush SCH (06:29)
[2016-08-29] MEDS: ALBUMIN HUMAN 25% 100 ML IV SCH ×3 (09:09→21:14)
[2016-08-29] MEDS: SODIUM CHLORIDE FLUSH 10ML SYR IVF SCH ×2 (09:10→21:14)
[2016-08-29] MEDS: FENTANYL PF 2,500 MCG in SODIUM CHLORIDE 0.9% 200 ML IV PRN (09:12)
[2016-08-29] MEDS: MICAFUNGIN 100 MG in SODIUM CHLORIDE 0.9% 100 ML IV SCH (11:02)
[2016-08-29] MEDS: ERTAPENEM 0.5 GM in SODIUM CHLORIDE 0.9% 50 ML IV SCH (11:02)
[2016-08-29] MEDS: LORazepam 2 MG/ML, 1ML IVPush PRN (12:42)
[2016-08-29] MEDS ORDERED: AMINO ACID 10% IV SCH (17:00)
[2016-08-29] MEDS ORDERED: DEXTROSE 70% IV SCH (17:00)
[2016-08-29] MEDS ORDERED: FAT EMULSIONS IV SCH (17:00)
[2016-08-29] MEDS ORDERED: [UNRECOGNIZED DRUG - OTHER] IV SCH (17:00)
[2016-08-29] MEDS ORDERED: INSULIN REGULAR HIGH DOSE QDAY SQ-INSULIN SCH (21:00)
[2016-08-29] MEDS: INSULIN REGULAR HIGH DOSE Q6H X 48HRS SQ-INSULIN SCH (21:00)
[2016-08-30] MEDS: ALBUTEROL SULFATE 2.5 MG/3 ML INLINE SCH ×6 (02:22→22:38)
[2016-08-30] MEDS: INSULIN REGULAR HIGH DOSE Q6H X 48HRS SQ-INSULIN SCH ×5 (03:00→23:30)
[2016-08-30] MEDS ORDERED: CATHFLO-ALTEPLASE 2 MG/2 ML CATHFLUSH ONE (03:00)
[2016-08-30] MEDS: LORazepam 2 MG/ML, 1ML IVPush PRN ×3 (03:21→19:40)
[2016-08-30 04:08] VITALS: BP 116/75
[2016-08-30 04:37] LABS: ABG COLLECTION SITE LEFT RADIAL; COLLATERAL CIRCULATION TESTING NORMAL
[2016-08-30] MEDS: INSULIN REGULAR HIGH DOSE QDAY SQ-INSULIN SCH (05:00)
[2016-08-30] MEDS: FENTANYL PF 2,500 MCG in SODIUM CHLORIDE 0.9% 200 ML IV PRN (05:43)
[2016-08-30 05:49] LABS: HEMOGLOBIN 9.6 g/dL (11.7-16.4)
[2016-08-30 06:20] LABS: BLOOD UREA NITROGEN 105 mg/dL (7-18)
[2016-08-30] MEDS: LEVOTHYROXINE 100 MCG INJ IVPush SCH (06:26)
[2016-08-30 06:35] LABS: DIFF TOTAL CELLS COUNTED 100 CELL DIFF
[2016-08-30 06:37] LABS: ANISOCYTOSIS 1+; POLYCHROMASIA 1+; VERIFY COUNTS? YES
[2016-08-30 06:38] LABS: LARGE PLATELETS 1+
[2016-08-30] MEDS: SODIUM CHLORIDE FLUSH 10ML SYR IVF SCH ×2 (07:41→20:47)
[2016-08-30] MEDS: FENTANYL 100 MCG PATCH TD SCH (08:57)
[2016-08-30] MEDS: ALBUMIN HUMAN 25% 100 ML IV SCH ×3 (08:58→20:47)
[2016-08-30] MEDS: MICAFUNGIN 100 MG in SODIUM CHLORIDE 0.9% 100 ML IV SCH (10:22)
[2016-08-30] MEDS: ERTAPENEM 0.5 GM in SODIUM CHLORIDE 0.9% 50 ML IV SCH (10:23)
[2016-08-30] MEDS ORDERED: DEXTROSE 5% 1,000 ML IV SCH (11:00)
[2016-08-30] MEDS: DEXTROSE 5% 1,000 ML IV SCH ×2 (13:55→20:47)
[2016-08-30] MEDS ORDERED: DEXTROSE 70% IV SCH (17:00)
[2016-08-30] MEDS ORDERED: AMINO ACID 10% IV SCH (17:00)
[2016-08-30] MEDS ORDERED: [UNRECOGNIZED DRUG - OTHER] IV SCH (17:00)
[2016-08-30] MEDS ORDERED: FAT EMULSIONS IV SCH (17:00)
[2016-08-30] MEDS: FILTER, DISP 1.2 MICRON FOR TPN/PVN IV PRN (17:08)
[2016-08-31] MEDS: LORazepam 2 MG/ML, 1ML IVPush PRN ×2 (02:27→21:42)
[2016-08-31] MEDS: ALBUTEROL SULFATE 2.5 MG/3 ML INLINE SCH ×8 (03:00→23:39)
[2016-08-31] MEDS: HYDROmorphone 1 MG/ML, 1ML IV PRN ×3 (04:54→23:35)
[2016-08-31] MEDS: DEXTROSE 5% 1,000 ML IV SCH ×3 (04:55→21:44)
[2016-08-31] MEDS: INSULIN REGULAR HIGH DOSE QDAY SQ-INSULIN SCH (05:00)
[2016-08-31] MEDS: INSULIN REGULAR HIGH DOSE Q6H X 48HRS SQ-INSULIN SCH ×4 (05:08→23:46)
[2016-08-31 05:19] LABS: HEMOGLOBIN 9.3 g/dL (11.7-16.4)
[2016-08-31 05:42] LABS: BLOOD UREA NITROGEN 91 mg/dL (7-18)
[2016-08-31 06:43] VITALS: BP 127/86
[2016-08-31 06:46] LABS: ABG COLLECTION SITE RIGHT RADIAL; COLLATERAL CIRCULATION TESTING NORMAL
[2016-08-31] MEDS: LEVOTHYROXINE 100 MCG INJ IVPush SCH (07:58)
[2016-08-31] MEDS: SODIUM CHLORIDE FLUSH 10ML SYR IVF SCH ×2 (08:05→21:46)
[2016-08-31] MEDS: ALBUMIN HUMAN 25% 100 ML IV SCH ×3 (08:27→21:42)
[2016-08-31] MEDS: MICAFUNGIN 100 MG in SODIUM CHLORIDE 0.9% 100 ML IV SCH (11:15)
[2016-08-31] MEDS: ERTAPENEM 0.5 GM in SODIUM CHLORIDE 0.9% 50 ML IV SCH (12:41)
[2016-08-31] MEDS: FILTER, DISP 1.2 MICRON FOR TPN/PVN IV PRN (16:54)
[2016-08-31] MEDS ORDERED: DEXTROSE 70% IV SCH (17:00)
[2016-08-31] MEDS ORDERED: AMINO ACID 10% IV SCH (17:00)
[2016-08-31] MEDS ORDERED: FAT EMULSIONS IV SCH (17:00)
[2016-08-31] MEDS ORDERED: [UNRECOGNIZED DRUG - OTHER] IV SCH (17:00)
[2016-08-31] MEDS ORDERED: CATHFLO-ALTEPLASE 2 MG/2 ML CATHFLUSH ONE (22:00)
[2016-08-31] MEDS ORDERED: LIDOCAINE-MPF 1%, 2ML INFIL ONE (22:30)
[2016-09-01 04:27] VITALS: BP 133/91
[2016-09-01] MEDS: INSULIN REGULAR HIGH DOSE Q6H X 48HRS SQ-INSULIN SCH (04:36)
[2016-09-01] MEDS: DEXTROSE 5% 1,000 ML IV SCH ×2 (04:36→14:32)
[2016-09-01 04:37] LABS: HEMOGLOBIN 9.6 g/dL (11.7-16.4)
[2016-09-01] MEDS: HYDROmorphone 1 MG/ML, 1ML IV PRN ×2 (04:37→16:52)
[2016-09-01 04:39] LABS: ABG COLLECTION SITE RIGHT RADIAL; COLLATERAL CIRCULATION TESTING NORMAL
[2016-09-01 04:46] LABS: BLOOD UREA NITROGEN 82 mg/dL (7-18)
[2016-09-01 04:51] LABS: ASPARTATE AMINO TRANSFERASE 55 U/L (15-37)
[2016-09-01] MEDS: INSULIN REGULAR HIGH DOSE QDAY SQ-INSULIN SCH ×4 (05:00→20:00)
[2016-09-01] MEDS: ALBUTEROL SULFATE 2.5 MG/3 ML INLINE SCH ×5 (06:35→22:20)
[2016-09-01] MEDS: LEVOTHYROXINE 100 MCG INJ IVPush SCH (07:41)
[2016-09-01] MEDS: ALBUMIN HUMAN 25% 100 ML IV SCH ×3 (08:54→21:49)
[2016-09-01] MEDS: SODIUM CHLORIDE FLUSH 10ML SYR IVF SCH ×2 (08:55→21:49)
[2016-09-01] MEDS: ERTAPENEM 0.5 GM in SODIUM CHLORIDE 0.9% 50 ML IV SCH (11:23)
[2016-09-01] MEDS: MICAFUNGIN 100 MG in SODIUM CHLORIDE 0.9% 100 ML IV SCH (11:26)
[2016-09-01] MEDS ORDERED: [UNRECOGNIZED DRUG - OTHER] IV SCH (17:00)
[2016-09-01] MEDS ORDERED: [UNRECOGNIZED DRUG - OTHER] IV SCH (17:00)
[2016-09-01] MEDS ORDERED: DEXTROSE 70% IV SCH ×2 (17:00)
[2016-09-01] MEDS ORDERED: FAT EMULSIONS IV SCH ×2 (17:00)
[2016-09-01] MEDS ORDERED: AMINO ACID 10% IV SCH ×2 (17:00)
[2016-09-01] MEDS: LORazepam 2 MG/ML, 1ML IVPush PRN ×2 (17:43→23:16)
[2016-09-02] MEDS: DEXTROSE 5% 1,000 ML IV SCH (01:07)
[2016-09-02] MEDS: HYDROmorphone 1 MG/ML, 1ML IV PRN ×5 (01:23→21:16)
[2016-09-02] MEDS: ALBUTEROL SULFATE 2.5 MG/3 ML INLINE SCH ×5 (02:22→22:08)
[2016-09-02 04:00] VITALS: BP 136/88
[2016-09-02] MEDS: INSULIN REGULAR HIGH DOSE QDAY SQ-INSULIN SCH ×6 (05:00→20:00)
[2016-09-02 05:35] LABS: ABG COLLECTION SITE RIGHT RADIAL; COLLATERAL CIRCULATION TESTING NORMAL
[2016-09-02 05:36] LABS: HEMOGLOBIN 9.3 g/dL (11.7-16.4)
[2016-09-02 06:00] LABS: ASPARTATE AMINO TRANSFERASE 39 U/L (15-37); BLOOD UREA NITROGEN 67 mg/dL (7-18)
[2016-09-02] MEDS: LEVOTHYROXINE 100 MCG INJ IVPush SCH (06:26)
[2016-09-02] MEDS ORDERED: FUROSEMIDE 20 MG/2 ML IV ONE (08:00)
[2016-09-02] MEDS: FENTANYL 100 MCG PATCH TD SCH (09:32)
[2016-09-02] MEDS: SODIUM CHLORIDE FLUSH 10ML SYR IVF SCH ×2 (09:50→21:15)
[2016-09-02] MEDS: FENTANYL REMOVE PATCH NOTE XX SCH (09:51)
[2016-09-02] MEDS: ERTAPENEM 0.5 GM in SODIUM CHLORIDE 0.9% 50 ML IV SCH (10:16)
[2016-09-02] MEDS: MICAFUNGIN 100 MG in SODIUM CHLORIDE 0.9% 100 ML IV SCH (11:29)
[2016-09-02] MEDS ORDERED: [UNRECOGNIZED DRUG - OTHER] IV SCH (17:00)
[2016-09-02] MEDS ORDERED: DEXTROSE 70% IV SCH (17:00)
[2016-09-02] MEDS ORDERED: AMINO ACID 10% IV SCH (17:00)
[2016-09-02] MEDS ORDERED: FAT EMULSIONS IV SCH (17:00)
[2016-09-02] MEDS: ACETAMINOPHEN 650 MG SUPP PR PRN (23:28)
[2016-09-03] MEDS: HYDROmorphone 1 MG/ML, 1ML IV PRN ×4 (00:02→19:35)
[2016-09-03] MEDS: ALBUTEROL SULFATE 2.5 MG/3 ML INLINE SCH ×3 (01:57→11:00)
[2016-09-03] MEDS: INSULIN REGULAR HIGH DOSE QDAY SQ-INSULIN SCH ×2 (04:20)
[2016-09-03] MEDS: ACETAMINOPHEN 650 MG SUPP PR PRN (04:25)
[2016-09-03 04:27] LABS: ABG COLLECTION SITE NOT DOCUMENTED
[2016-09-03 04:30] VITALS: BP 140/70
[2016-09-03 04:42] LABS: BLOOD UREA NITROGEN 74 mg/dL (7-18)
[2016-09-03] MEDS: LEVOTHYROXINE 100 MCG INJ IVPush SCH (06:16)
[2016-09-03 06:17] LABS: DIFF TOTAL CELLS COUNTED 100 CELL DIFF
[2016-09-03 06:23] LABS: VERIFY COUNTS? YES
[2016-09-03 06:24] LABS: ANISOCYTOSIS 1+; HYPOCHROMIA 1+
[2016-09-03] MEDS: SODIUM CHLORIDE FLUSH 10ML SYR IVF SCH ×2 (09:00→19:30)
[2016-09-03] MEDS: ERTAPENEM 0.5 GM in SODIUM CHLORIDE 0.9% 50 ML IV SCH (11:26)
[2016-09-03] MEDS: MICAFUNGIN 100 MG in SODIUM CHLORIDE 0.9% 100 ML IV SCH (11:26)
[2016-09-03] MEDS ORDERED: INSULIN REGULAR HIGH DOSE QDAY SQ-INSULIN SCH (12:00)
[2016-09-03] MEDS ORDERED: ALBUTEROL SULFATE 2.5 MG/3 ML NPPB SCH (15:00)
[2016-09-03] MEDS ORDERED: AMINO ACID 10% IV SCH (17:00)
[2016-09-03] MEDS ORDERED: DEXTROSE 70% IV SCH (17:00)
[2016-09-03] MEDS ORDERED: FAT EMULSIONS IV SCH (17:00)
[2016-09-03] MEDS ORDERED: [UNRECOGNIZED DRUG - OTHER] IV SCH (17:00)
[2016-09-03] MEDS: INSULIN REGULAR 100 UNITS/ML, 3ML VIAL SQ-INSULIN SCH (18:00)
[2016-09-03] MEDS: FILTER, DISP 1.2 MICRON FOR TPN/PVN IV PRN (19:25)
[2016-09-03] MEDS: ALBUTEROL SULFATE 2.5 MG/3 ML NPPB SCH (20:22)
[2016-09-04 04:00] VITALS: BP 149/93
[2016-09-04 04:23] LABS: HEMOGLOBIN 10.5 g/dL (11.7-16.4)
[2016-09-04 04:26] LABS: ABG COLLECTION SITE RIGHT RADIAL; COLLATERAL CIRCULATION TESTING NORMAL
[2016-09-04 04:34] LABS: BLOOD UREA NITROGEN 86 mg/dL (7-18)
[2016-09-04] MEDS: LEVOTHYROXINE 100 MCG INJ IVPush SCH (05:37)
[2016-09-04] MEDS: INSULIN REGULAR 100 UNITS/ML, 3ML VIAL SQ-INSULIN SCH ×4 (05:38→18:00)
[2016-09-04] MEDS: ALBUTEROL SULFATE 2.5 MG/3 ML NPPB SCH (06:38)
[2016-09-04] MEDS: SODIUM CHLORIDE FLUSH 10ML SYR IVF SCH ×2 (09:00→21:36)
[2016-09-04] MEDS: ERTAPENEM 0.5 GM in SODIUM CHLORIDE 0.9% 50 ML IV SCH (10:35)
[2016-09-04] MEDS ORDERED: AMINO ACID 10% IV SCH (17:00)
[2016-09-04] MEDS ORDERED: DEXTROSE 70% IV SCH (17:00)
[2016-09-04] MEDS ORDERED: [UNRECOGNIZED DRUG - OTHER] IV SCH (17:00)
[2016-09-04] MEDS ORDERED: FAT EMULSIONS IV SCH (17:00)
[2016-09-04] MEDS: FILTER, DISP 1.2 MICRON FOR TPN/PVN IV PRN (22:44)
[2016-09-05] MEDS: INSULIN REGULAR 100 UNITS/ML, 3ML VIAL SQ-INSULIN SCH ×2 (00:13→06:24)
[2016-09-05 04:00] VITALS: BP 166/100
[2016-09-05 04:25] LABS: ABG COLLECTION SITE RIGHT RADIAL; COLLATERAL CIRCULATION TESTING NORMAL
[2016-09-05 05:43] LABS: HEMOGLOBIN 10.7 g/dL (11.7-16.4)
[2016-09-05 05:46] LABS: BLOOD UREA NITROGEN 99 mg/dL (7-18)
[2016-09-05] MEDS: LEVOTHYROXINE 100 MCG INJ IVPush SCH (06:43)
[2016-09-05] MEDS ORDERED: DIPHENOXYLATE/ATROPINE ORAL SOL NG PRN (08:30)
[2016-09-05] MEDS: FENTANYL REMOVE PATCH NOTE XX SCH (08:59)
[2016-09-05] MEDS ORDERED: CHOLESTYRAMINE 4GM PACKET NG SCH (09:00)
[2016-09-05] MEDS ORDERED: INSU100V5 SQ-INSULIN (09:16)
[2016-09-05] MEDS ORDERED: CHOL4PAC2 NG (09:16)
[2016-09-05] MEDS ORDERED: ONDA4VIA4 IVP (09:16)
[2016-09-05] MEDS ORDERED: DIPH60LI NG (09:16)
[2016-09-05] MEDS ORDERED: FENT1PAT78 TD (09:16)
[2016-09-05] MEDS: FENTANYL 100 MCG PATCH TD SCH (09:22)
[2016-09-05] MEDS: SODIUM CHLORIDE FLUSH 10ML SYR IVF SCH (09:23)
[2016-09-05] MEDS: hydrALAzine 20 MG/ML, 1ML IV PRN (09:25)
[2016-09-05] MEDS ORDERED: SODIUM CHLORIDE 0.9% 1,000 ML IV SCH (10:00)
[2016-09-05] MEDS: ERTAPENEM 0.5 GM in SODIUM CHLORIDE 0.9% 50 ML IV SCH (11:38)
[2016-09-05 11:40] VITALS: BP 142/85
[2016-09-05] MEDS ORDERED: [UNRECOGNIZED DRUG - OTHER] IV SCH (18:00)
[2016-09-05] MEDS ORDERED: DEXTROSE 70% IV SCH (18:00)
[2016-09-05] MEDS ORDERED: AMINO ACID 10% IV SCH (18:00)
[2016-09-05] MEDS ORDERED: FAT EMULSIONS IV SCH (18:00)
== END 2016-09-05 13:30 | DRG 853 ==
LOC: ED 03:54 → EDIP 04:39 → SUATTDRO 04:43 → 3NE 06:27 → 4NOR 13:08 → CCU 13:38
PROC: 04C00ZZ Extirpation of Matter from Abdominal Aorta, Open Approach (ICD-10-PCS; 2016-08-16)
PROC: 04U50KZ Supplement Superior Mesenteric Artery with Nonautologous Tissue Substitute, Open Approach (ICD-10-PCS; 2016-08-16)
PROC: 30233N1 Transfusion of Nonautologous Red Blood Cells into Peripheral Vein, Percutaneous Approach (ICD-10-PCS; 2016-08-16)
PROC: 5A1945Z Respiratory Ventilation, 24-96 Consecutive Hours (ICD-10-PCS; 2016-08-16)
PROC: 0BH17EZ Insertion of Endotracheal Airway into Trachea, Via Natural or Artificial Opening (ICD-10-PCS; 2016-08-16)
PROC: 0DB80ZZ Excision of Small Intestine, Open Approach (ICD-10-PCS; principal; 2016-08-16 08:30)
PROC: 0DB80ZZ Excision of Small Intestine, Open Approach (ICD-10-PCS; 2016-08-17)
PROC: 0DTF0ZZ Resection of Right Large Intestine, Open Approach (ICD-10-PCS; 2016-08-19)
PROC: 5A09357 Assistance with Respiratory Ventilation, Less than 24 Consecutive Hours, Continuous Positive Airway Pressure (ICD-10-PCS; 2016-08-24)
PROC: 5A1955Z Respiratory Ventilation, Greater than 96 Consecutive Hours (ICD-10-PCS; 2016-08-24)
PROC: 0BH17EZ Insertion of Endotracheal Airway into Trachea, Via Natural or Artificial Opening (ICD-10-PCS; 2016-08-24)
PROC: 02HV33Z Insertion of Infusion Device into Superior Vena Cava, Percutaneous Approach (ICD-10-PCS; 2016-08-24)
PROC: B548ZZA Ultrasonography of Superior Vena Cava, Guidance (ICD-10-PCS; 2016-08-24)
PROC: 0T9B70Z Drainage of Bladder with Drainage Device, Via Natural or Artificial Opening (ICD-10-PCS; 2016-08-25)
DX: A41.9 Sepsis, unspecified organism (principal); K55.069 Acute infarction of intestine, part and extent unspecified; K65.1 Peritoneal abscess; E43 Unspecified severe protein-calorie malnutrition; K63.1 Perforation of intestine (nontraumatic); J96.00 Acute respiratory failure, unspecified whether with hypoxia or hypercapnia; K55.029 Acute infarction of small intestine, extent unspecified; N17.0 Acute kidney failure with tubular necrosis; J81.0 Acute pulmonary edema; E87.1 Hypo-osmolality and hyponatremia; N17.9 Acute kidney failure, unspecified; D62 Acute posthemorrhagic anemia; J90 Pleural effusion, not elsewhere classified; J98.11 Atelectasis; E87.0 Hyperosmolality and hypernatremia; N39.0 Urinary tract infection, site not specified; K91.2 Postsurgical malabsorption, not elsewhere classified; Z99.11 Dependence on respirator [ventilator] status; K21.9 Gastro-esophageal reflux disease without esophagitis; I10 Essential (primary) hypertension; E03.9 Hypothyroidism, unspecified; E87.6 Hypokalemia; Z80.7 Family history of other malignant neoplasms of lymphoid, hematopoietic and related tissues; E86.0 Dehydration; R73.9 Hyperglycemia, unspecified; D17.5 Benign lipomatous neoplasm of intra-abdominal organs; D64.9 Anemia, unspecified; Z51.5 Encounter for palliative care; D75.89 Other specified diseases of blood and blood-forming organs; I95.9 Hypotension, unspecified; Z98.51 Tubal ligation status; Z90.49 Acquired absence of other specified parts of digestive tract; Z80.49 Family history of malignant neoplasm of other genital organs
CPT/HCPCS: 36415; 36569; 36600; 71010; 74000; 74174; 74176; 76937; 77001; 80048; 80053; 81001; 82040; 82247; 82248; 82272; 82330; 82436; 82533; 82570; 82803; 82947; 82962; 83036; 83605; 83690; 83735; 84100; 84132; 84133; 84134; 84295; 84300; 84439; 84443; 84478; 84484; 85014; 85018; 85025; 85520; 85610; 85730; 86850; 86900; 86923; 87040; 87070; 87081; 87086; 87205; 88304; 88307; 88309; 93005; 93306; 93312; 93321; 93325; 94002; 94003; 94150; 94640; 94660; 96361; 96374; 96375; 96376; C1729; J0610; J0696; J1170; J1335; J1644; J1815; J1940; J2248; J2250; J2405; J2543; J2704; J2720; J2997; J3010; J3370; J3430; J3475; J3480; J3490; J7070; J7120; J7613; J7620; P9045; P9047; Q9967; C1751; C1757; C1768; J0330; J0360; J2060; J2370; J3420; J7030; J7040; J7050; P9016; S0028

== ENCOUNTER 2016-10-22 12:24 | Day surgery (SDC) | payer OTHER ==
[~2016-10-22] VITALS: Ht 161.3 cm; Wt 87.0 kg
[~2016-10-22 12:24] MED LIST changes: +BUPIVACAINE/PF-EPI 0.25% 1:200K ONE; -CEFD300C2 PO; +CEFD300C37 PO; +CHOL4PAC2 NG; +DIPH60LI NG; +FENT1PAT78 TD; +HEPARIN 1,000 UNITS/ML, 10ML ONE; +INSU100V5 SQ-INSULIN; +ONDA4VIA4 IVP
[2016-10-22] MEDS ORDERED: LACTATED RINGERS 1,000 ML IV SCH (13:00)
[2016-10-22] MEDS ORDERED: LIDOCAINE 1%, 2ML SQ PRN (13:00)
[2016-10-22] MEDS ORDERED: ACET325T14 PO (13:07)
[2016-10-22] MEDS ORDERED: METOPROLOL PO (13:07)
[2016-10-22] MEDS ORDERED: ASPI81TA50 PO (13:07)
[2016-10-22] MEDS ORDERED: DIPH1TAB PO (13:07)
[2016-10-22] MEDS ORDERED: ONDA4TAB7 PO (13:07)
[2016-10-22] MEDS ORDERED: LEVO137T2 PO (13:07)
[2016-10-22] MEDS ORDERED: FENTANYL PF 100 MCG/2ML ONE ×2 (13:07→15:47)
[2016-10-22] MEDS ORDERED: MIDAZOLAM 1 MG/ML, 2ML ONE (13:07)
[2016-10-22] MEDS ORDERED: PANT40TA3 PO (13:07)
[2016-10-22 13:18] VITALS: BP 148/92
[2016-10-22] MEDS ORDERED: NEOSTIGMINE 1 MG/ML, 10ML ONE (14:28)
[2016-10-22] MEDS ORDERED: ONDANSETRON 2MG/ML, 2ML ONE (14:28)
[2016-10-22] MEDS ORDERED: GLYCOPYRROLATE 0.2MG/1ML ONE (14:28)
[2016-10-22] MEDS ORDERED: PROPOFOL 10 MG/ML, 20ML ONE (14:28)
[2016-10-22] MEDS ORDERED: CEFAZOLIN 1,000 MG ONE (14:28)
[2016-10-22] MEDS ORDERED: ROCURONIUM 10 MG/ML ONE (14:28)
[2016-10-22] MEDS ORDERED: DEXAMETHASONE 4 MG/ML, 1ML ONE (14:28)
[2016-10-22] MEDS ORDERED: hydrALAzine 20 MG/ML, 1ML IV PRN (14:30)
[2016-10-22] MEDS ORDERED: HYDROmorphone 1 MG/ML, 1ML IV PRN (14:30)
[2016-10-22] MEDS ORDERED: MEPERIDINE/PF 25MG/0.5ML IVPush PRN (14:30)
[2016-10-22] MEDS ORDERED: OXYcodone 5 MG/5 ML ORAL.SOL UDC PO PRN (14:30)
[2016-10-22] MEDS ORDERED: METOCLOPRAMIDE 5 MG/ML, 2ML IV PRN (14:30)
[2016-10-22] MEDS ORDERED: ONDANSETRON 2MG/ML, 2ML IVPush PRN (14:30)
[2016-10-22] MEDS ORDERED: PROMETHAZINE 25 MG/ML, 1ML IV PRN (14:30)
[2016-10-22] MEDS ORDERED: FENTANYL PF 100 MCG/2ML IV PRN (14:30)
[2016-10-22] MEDS ORDERED: LABETALOL 5MG/ML, 20ML IV PRN (14:30)
[2016-10-22] MEDS ORDERED: ACETAMINOPHEN 650 MG/20.3 ML UDC ONE (15:47)
[2016-10-22] MEDS ORDERED: ACETAMINOPHEN 650 MG/20.3 ML UDC PO PRN (16:00)
== END 2016-10-22 18:10 | disposition home or self-care (01) ==
LOC: OUT 12:24
PROVIDERS: ATTEND Surgery
DX: K91.2 Postsurgical malabsorption, not elsewhere classified (principal); I10 Essential (primary) hypertension; K21.9 Gastro-esophageal reflux disease without esophagitis; E03.9 Hypothyroidism, unspecified; Z88.8 Allergy status to other drugs, medicaments and biological substances; Z91.018 Allergy to other foods; Z99.89 Dependence on other enabling machines and devices; Z98.890 Other specified postprocedural states; Z90.49 Acquired absence of other specified parts of digestive tract; Y83.8 Other surgical procedures as the cause of abnormal reaction of the patient, or of later complication, without mention of misadventure at the time of the procedure
CPT/HCPCS: 36558; 77001; J0690; J1100; J1644; J2250; J2405; J2704; J2710; J3010; J7120; J3490

== ENCOUNTER 2016-11-08 07:16 | Day surgery (SDC) | payer OTHER ==
[2016-11-07 10:09] VITALS: BP 144/92
[~2016-11-08] VITALS: Ht 160 cm; Wt 87.0 kg
[~2016-11-08 07:16] MED LIST changes: +ACET325T14 PO; +ASPI81TA50 PO; +CALC200T3 PO; +CEFAZOLIN 1,000 MG ONE; +DIPH1TAB PO; +LACTATED RINGERS 1,000 ML IV SCH; +LEVO137T2 PO; +METOPROLOL PO; +ONDA4TAB7 PO; +ONDANSETRON 2MG/ML, 2ML ONE; +PANT40TA3 PO; +PLEASE ENTER HEIGHT AND WEIGHT MC SCH
[2016-11-08] MEDS ORDERED: FENTANYL PF 100 MCG/2ML ONE (07:43)
[2016-11-08] MEDS ORDERED: MIDAZOLAM 1 MG/ML, 2ML ONE ×2 (07:43→08:55)
[2016-11-08 08:02] VITALS: BP 125/84
[2016-11-08] MEDS ORDERED: LACTATED RINGERS 1,000 ML IV SCH (08:10)
[2016-11-08] MEDS ORDERED: BUPIVACAINE/PF-EPI 0.25% 1:200K ONE (08:33)
[2016-11-08] MEDS ORDERED: HEPARIN 1,000 UNITS/ML, 10ML ONE (08:33)
[2016-11-08] MEDS ORDERED: DEXAMETHASONE 4 MG/ML, 1ML ONE (09:03)
[2016-11-08] MEDS ORDERED: ROCURONIUM 10 MG/ML ONE (09:03)
[2016-11-08] MEDS ORDERED: PROPOFOL 10 MG/ML, 20ML ONE (09:03)
[2016-11-08] MEDS ORDERED: SUCCINYLCHOLINE 20 MG/ML, 10ML ONE (09:03)
[2016-11-08] MEDS ORDERED: hydrALAzine 20 MG/ML, 1ML IV PRN (09:30)
[2016-11-08] MEDS ORDERED: LABETALOL 5MG/ML, 20ML IV PRN (09:30)
[2016-11-08] MEDS ORDERED: PROMETHAZINE 25 MG/ML, 1ML IV PRN (09:30)
[2016-11-08] MEDS ORDERED: MEPERIDINE/PF 25MG/0.5ML IVPush PRN (09:30)
[2016-11-08] MEDS ORDERED: ONDANSETRON 2MG/ML, 2ML IVPush PRN (09:30)
[2016-11-08] MEDS ORDERED: ACETAMINOPHEN 325 MG TABLET PO PRN (09:30)
[2016-11-08] MEDS ORDERED: OXYcodone 5 MG/5 ML ORAL.SOL UDC PO PRN (09:30)
[2016-11-08] MEDS ORDERED: morphine SULFATE 10 MG/ML, 1ML IV PRN (09:30)
[2016-11-08] MEDS ORDERED: FENTANYL PF 100 MCG/2ML IV PRN (09:30)
[2016-11-08] MEDS ORDERED: OXYcodone 5 MG/5 ML ORAL.SOL UDC ONE (09:58)
== END 2016-11-08 11:50 | disposition home or self-care (01) ==
LOC: OUT 07:16
PROVIDERS: ATTEND Surgery
DX: K91.2 Postsurgical malabsorption, not elsewhere classified (principal); Z88.8 Allergy status to other drugs, medicaments and biological substances; Z91.018 Allergy to other foods; I10 Essential (primary) hypertension; E03.9 Hypothyroidism, unspecified; Z86.718 Personal history of other venous thrombosis and embolism; Z82.49 Family history of ischemic heart disease and other diseases of the circulatory system; Z90.49 Acquired absence of other specified parts of digestive tract; Z98.890 Other specified postprocedural states; Y83.8 Other surgical procedures as the cause of abnormal reaction of the patient, or of later complication, without mention of misadventure at the time of the procedure
CPT/HCPCS: 36558; 71010; 77001; C1751; J0330; J0690; J1100; J1644; J2250; J2405; J2704; J3010; J7120

== ENCOUNTER 2017-02-10 14:12 | Inpatient (IN) | payer OTHER ==
[~2017-02-10] VITALS: Ht 162.6 cm; Wt 84.8 kg
[~2017-02-10 14:12] MED LIST changes: -BUPIVACAINE/PF-EPI 0.25% 1:200K ONE; -CEFAZOLIN 1,000 MG ONE; -HEPARIN 1,000 UNITS/ML, 10ML ONE; -LACTATED RINGERS 1,000 ML IV SCH; -ONDANSETRON 2MG/ML, 2ML ONE; -PLEASE ENTER HEIGHT AND WEIGHT MC SCH
[2017-02-10] MEDS ORDERED: POTASSIUM CHLORIDE 20 MEQ TAB.ER.PRT PO ONE ×3 (15:00→23:00)
[2017-02-10] MEDS ORDERED: POTASSIUM CHLORIDE 40 MEQ in SODIUM CHLORIDE 0.9% 500 ML IV ONE (15:00)
[2017-02-10] MEDS ORDERED: SODIUM CHLORIDE FLUSH 10ML SYR IVF ONE (15:00)
[2017-02-10] MEDS ORDERED: POTASSIUM CHLORIDE 20 MEQ TAB.ER.PRT ONE (15:15)
[2017-02-10] MEDS ORDERED: MAGNESIUM SULFATE 1 GM in SODIUM CHLORIDE 0.9% 50 ML IV ONE (16:00)
[2017-02-10] MEDS ORDERED: POTASSIUM CHLORIDE 40 MEQ in SODIUM CHLORIDE 0.9% 1,000 ML IV ONE (16:25)
[2017-02-10] MEDS ORDERED: SODIUM CHLORIDE FLUSH 10ML SYR IVF PRN (16:30)
[2017-02-10] MEDS ORDERED: LABETALOL 5MG/ML, 20ML IVPush PRN (17:30)
[2017-02-10] MEDS ORDERED: HYDROcodone/APAP 5/325 TABLET PO PRN (17:30)
[2017-02-10] MEDS ORDERED: ONDANSETRON 2MG/ML, 2ML IVPush PRN (17:30)
[2017-02-10] MEDS ORDERED: ONDANSETRON ODT 4 MG PO PRN (17:30)
[2017-02-10 17:38] LABS: HEMATOCRIT 33.3 % (34.6-47.8); HEMOGLOBIN 11.3 g/dL (11.7-16.4); WHITE BLOOD COUNT 7.8 x10^3/uL (3.4-10)
[2017-02-10 17:43] LABS: ASPARTATE AMINO TRANSFERASE 37 U/L (15-37); BLOOD UREA NITROGEN 18 mg/dL (7-18)
[2017-02-10 19:59] VITALS: BP 110/73
[2017-02-10 20:00] VITALS: BP 110/73
[2017-02-10] MEDS ORDERED: ACETAMINOPHEN 325 MG TABLET PO SCH (21:00)
[2017-02-10] MEDS ORDERED: MAGNESIUM SULFATE PMX 4GM/100M 100 ML IV ONE (21:00)
[2017-02-10] MEDS: ACETAMINOPHEN 500 MG TABLET PO SCH (21:00)
[2017-02-10] MEDS: METOPROLOL TARTRATE 25 MG TABLET PO SCH (21:05)
[2017-02-10] MEDS: SODIUM CHLORIDE 0.9% 1,000 ML IV SCH (21:11)
[2017-02-11 02:30] VITALS: BP 115/78
[2017-02-11 05:55] LABS: HEMATOCRIT 30.7 % (34.6-47.8); HEMOGLOBIN 10.4 g/dL (11.7-16.4); WHITE BLOOD COUNT 7.4 x10^3/uL (3.4-10)
[2017-02-11] MEDS ORDERED: LEVOTHYROXINE 137 MCG TABLET PO SCH (06:00)
[2017-02-11] MEDS: ACETAMINOPHEN 500 MG TABLET PO SCH ×4 (06:00→21:16)
[2017-02-11 06:37] LABS: BLOOD UREA NITROGEN 15 mg/dL (7-18)
[2017-02-11] MEDS: SODIUM CHLORIDE 0.9% 1,000 ML IV SCH ×2 (06:42→21:18)
[2017-02-11] MEDS ORDERED: POTASSIUM CHLORIDE 20 MEQ TAB.ER.PRT PO ONE (08:00)
[2017-02-11 08:03] VITALS: BP 105/67
[2017-02-11] MEDS: PANTOPROZOLE 40MG TABLET PO SCH ×2 (08:30→09:00)
[2017-02-11] MEDS: ASPIRIN 81 MG TABLET EC PO SCH (08:30)
[2017-02-11] MEDS: DIPHENOXYLATE/ATROPINE TABLET PO SCH ×2 (08:30→09:00)
[2017-02-11] MEDS: METOPROLOL TARTRATE 25 MG TABLET PO SCH ×2 (08:30→21:16)
[2017-02-11] MEDS ORDERED: LEVOTHYROXINE 100 MCG INJ IVPush ONE (14:30)
[2017-02-11 15:14] VITALS: BP 123/80
[2017-02-11 19:22] VITALS: BP 114/76
[2017-02-12 02:18] VITALS: BP 120/75
[2017-02-12] MEDS: ACETAMINOPHEN 500 MG TABLET PO SCH ×3 (05:28→15:41)
[2017-02-12] MEDS ORDERED: LEVOTHYROXINE 150 MCG TABLET PO SCH (06:00)
[2017-02-12 06:36] LABS: HEMATOCRIT 30.2 % (34.6-47.8); HEMOGLOBIN 10.2 g/dL (11.7-16.4)
[2017-02-12 07:01] LABS: BLOOD UREA NITROGEN 9 mg/dL (7-18)
[2017-02-12 07:30] VITALS: BP 121/81
[2017-02-12] MEDS: ASPIRIN 81 MG TABLET EC PO SCH (07:51)
[2017-02-12] MEDS: DIPHENOXYLATE/ATROPINE TABLET PO SCH ×2 (07:51→09:29)
[2017-02-12] MEDS: METOPROLOL TARTRATE 25 MG TABLET PO SCH (07:51)
[2017-02-12] MEDS ORDERED: POTASSIUM CHLORIDE 20 MEQ TAB.ER.PRT PO ONE ×2 (09:30→12:00)
[2017-02-12] MEDS ORDERED: POTASSIUM CHLORIDE 20 MEQ PACKET PO ONE (11:30)
[2017-02-12] MEDS: SODIUM CHLORIDE 0.9% 1,000 ML IV SCH (13:00)
[2017-02-12 15:20] LABS: BLOOD UREA NITROGEN 8 mg/dL (7-18)
[2017-02-12] MEDS ORDERED: LEVO150T PO (16:17)
[2017-02-12] MEDS ORDERED: POTA20PA25 PO (16:17)
[2017-02-13] MEDS ORDERED: lomotil PO (07:18)
== END 2017-02-13 06:10 | disposition home or self-care (01) | DRG 641 ==
LOC: ED 16:24 → EDIP 16:25 → ED 16:43 → 4WST 18:45
PROVIDERS: ADMIT Hospitalist; ATTEND Hospitalist
DX: E87.6 Hypokalemia (principal); E83.42 Hypomagnesemia; I10 Essential (primary) hypertension; E03.9 Hypothyroidism, unspecified; D64.9 Anemia, unspecified; D75.89 Other specified diseases of blood and blood-forming organs; K21.9 Gastro-esophageal reflux disease without esophagitis; Z79.899 Other long term (current) drug therapy; Z80.49 Family history of malignant neoplasm of other genital organs; Z82.0 Family history of epilepsy and other diseases of the nervous system; Z83.3 Family history of diabetes mellitus
CPT/HCPCS: 36415; 80048; 80053; 82040; 83605; 83735; 84439; 84443; 85025; 87324; 93005; 96365; J3475; J3480; J7030; J7040

== ENCOUNTER 2017-02-13 06:21 | Day surgery (SDC) | payer OTHER ==
[~2017-02-13] VITALS: Ht 161.3 cm; Wt 86.1 kg
[~2017-02-13 06:21] MED LIST changes: +LEVO150T PO; +POTA20PA25 PO
[2017-02-13] MEDS ORDERED: FENTANYL PF 100 MCG/2ML ONE (06:49)
[2017-02-13] MEDS ORDERED: MIDAZOLAM 1 MG/ML, 2ML ONE (06:49)
[2017-02-13 06:54] VITALS: BP 137/92
[2017-02-13] MEDS ORDERED: LACTATED RINGERS 1,000 ML IV SCH (06:58)
[2017-02-13] MEDS ORDERED: BUPIVACAINE/PF 0.5% ONE (07:04)
[2017-02-13] MEDS ORDERED: EPINEPHRINE 1 MG/ML, 1ML ONE (07:04)
[2017-02-13] MEDS ORDERED: HEPARIN 1,000 UNITS/ML, 10ML ONE (07:04)
[2017-02-13] MEDS ORDERED: BUPIVACAINE/PF-EPI 0.25% 1:200K ONE (07:04)
[2017-02-13] MEDS ORDERED: lomotil PO (07:18)
[2017-02-13] MEDS ORDERED: PROPOFOL 10 MG/ML, 20ML ONE (07:29)
[2017-02-13] MEDS ORDERED: CEFAZOLIN 1,000 MG ONE (07:29)
[2017-02-13] MEDS ORDERED: PROMETHAZINE 25 MG/ML, 1ML IV PRN (07:30)
[2017-02-13] MEDS ORDERED: ACETAMINOPHEN 325 MG TABLET PO PRN (07:30)
[2017-02-13] MEDS ORDERED: HYDROmorphone 1 MG/ML, 1ML IV PRN (07:30)
[2017-02-13] MEDS ORDERED: MEPERIDINE/PF 25MG/0.5ML IVPush PRN (07:30)
[2017-02-13] MEDS ORDERED: hydrALAzine 20 MG/ML, 1ML IV PRN (07:30)
[2017-02-13] MEDS ORDERED: ONDANSETRON 2MG/ML, 2ML IVPush PRN (07:30)
[2017-02-13] MEDS ORDERED: OXYcodone 5 MG/5 ML ORAL.SOL UDC PO PRN (07:30)
[2017-02-13] MEDS ORDERED: LABETALOL 5MG/ML, 20ML IV PRN (07:30)
[2017-02-13] MEDS ORDERED: FENTANYL PF 100 MCG/2ML IV PRN (07:30)
== END 2017-02-13 09:00 | disposition home or self-care (01) ==
LOC: OUT 06:21
PROVIDERS: ATTEND Surgery
DX: Z45.2 Encounter for adjustment and management of vascular access device (principal); K91.2 Postsurgical malabsorption, not elsewhere classified; I10 Essential (primary) hypertension; E03.9 Hypothyroidism, unspecified; Z86.718 Personal history of other venous thrombosis and embolism; Z88.8 Allergy status to other drugs, medicaments and biological substances; Z98.890 Other specified postprocedural states; Z90.49 Acquired absence of other specified parts of digestive tract; Z79.82 Long term (current) use of aspirin; Z91.048 Other nonmedicinal substance allergy status; Z72.89 Other problems related to lifestyle
CPT/HCPCS: 36589; J0171; J0690; J2250; J2704; J3490; J7120; J1644; J3010

== ENCOUNTER 2017-03-04 16:15 | Emergency (ER) | payer OTHER ==
[~2017-03-04] VITALS: Ht 161.3 cm; Wt 83.6 kg
[~2017-03-04 16:15] MED LIST changes: +lomotil PO
[2017-03-04 16:52] LABS: HEMATOCRIT 36.9 % (34.6-47.8); HEMOGLOBIN 12.3 g/dL (11.7-16.4); WHITE BLOOD COUNT 6.3 x10^3/uL (3.4-10)
[2017-03-04 17:03] LABS: BLOOD UREA NITROGEN 19 mg/dL (7-18)
[2017-03-04] MEDS ORDERED: POTASSIUM CHLORIDE 20 MEQ TAB.ER.PRT PO ONE (17:30)
[2017-03-04] MEDS ORDERED: METO25TA35 PO (17:31)
[2017-03-04] MEDS ORDERED: POTASSIUM CHLORIDE 20 MEQ TAB.ER.PRT ONE (17:38)
[2017-03-04] MEDS ORDERED: MAGNESIUM OXIDE 400 MG TABLET PO ONE (18:00)
[2017-03-04 18:30] VITALS: BP 133/87
== END 2017-03-04 18:38 | disposition home or self-care (01) ==
LOC: ED 17:09
DX: E87.6 Hypokalemia (principal); E86.0 Dehydration; E83.42 Hypomagnesemia; I10 Essential (primary) hypertension; K21.9 Gastro-esophageal reflux disease without esophagitis; Z79.82 Long term (current) use of aspirin; Z90.49 Acquired absence of other specified parts of digestive tract; Z98.51 Tubal ligation status; E03.9 Hypothyroidism, unspecified
CPT/HCPCS: 36415; 80048; 82040; 83735; 85025; 93005; 99285

== ENCOUNTER → 2017-03-21 | Outpatient (CLI) | payer OTHER ==
[~2017-03-21] MED LIST changes: +METO25TA35 PO
== END | disposition home or self-care (01) ==
LOC: CFH 13:34
PROVIDERS: ATTEND Family Medicine
DX: Z12.31 Encounter for screening mammogram for malignant neoplasm of breast (principal)
CPT/HCPCS: 77063; G0202